=== PATIENT | female | born 1960 | race Caucasian/White ===

== ENCOUNTER 2018-01-31 07:25 | Day surgery (SDC) | payer SELFPAY ==
[~2018-01-31] VITALS: Ht 175.3 cm; Wt 109.3 kg
[~2018-01-31 07:25] MED LIST: CLARITIN10 M2 PO; COQ10100 MG PO; MAGNESIUM 250 M1 TAB PO; MIRALAX3350 NF PO; OMEPRAZOLE20 MG PO; PREDNISONE20 MG PO
[2018-01-31] MEDS ORDERED: PERCOCET PO (07:42)
[2018-01-31] MEDS ORDERED: FLEXERIL5 MG PO (07:42)
[2018-01-31 13:26] VITALS: BP 139/67
== END 2018-01-31 09:45 | disposition home or self-care (01) | DRG 392 ==
LOC: ENDO 07:25 → ORM 12:15 → ENDO 12:30
PROVIDERS: ATTEND Surgery
PROC: 0DJ08ZZ Inspection of Upper Intestinal Tract, Via Natural or Artificial Opening Endoscopic (ICD-10-PCS; principal; 2018-01-31)
DX: K44.9 Diaphragmatic hernia without obstruction or gangrene (principal); K21.9 Gastro-esophageal reflux disease without esophagitis; M79.3 Panniculitis, unspecified; R10.13 Epigastric pain; Q40.2 Other specified congenital malformations of stomach; E66.01 Morbid (severe) obesity due to excess calories